=== PATIENT | female | born 1995 | race Hispanic/Latino ===

== ENCOUNTER 2023-01-07 10:58 | Inpatient (IN) | payer MEDICAID, SELFPAY ==
[2023-01-07 12:23] VITALS: BMI 37.2
[2023-01-07] MEDS ORDERED: hydrALAZINE 20 MG/ML VIAL SLOW IVP PRN ×2 (12:59→14:51)
[2023-01-07 13:04] LABS: Fetal Membranes Rupture RUPTURE DETECTED (No Rupture)
[2023-01-07 14:06] LABS: ALT (SGPT) 10 U/L (8-55); AST (SGOT) 22 U/L (5-34); Albumin 3.4 g/dL (3.5-5.0); Alkaline Phosphatase 127 U/L (40-110); Anion Gap 14 mmol/L (10-20); BUN (Urea Nitrogen) 6 mg/dL (7.0-18.7); Bilirubin, Total 0.2 mg/dL (0.2-1.2); Calc. Creatinine Clearance 232 mL/min (70-130); Calcium 8.8 mg/dL (7.8-10.44); Carbon Dioxide 20 mmol/L (22-29); Chloride 107 mmol/L (98-107); Estimated GFR 130; Globulin 3.1 g/dL (2.4-3.5); Glucose 77 mg/dL (70-105); Potassium 3.9 mmol/L (3.5-5.1); Protein, Total 6.5 g/dL (6.0-8.3); Sodium 137 mmol/L (136-145)
[2023-01-07 14:07] LABS: Hemoglobin 12.7 g/dL (12.0-15.5); Mean Corpuscular HGB CONC 33.3 g/dL (32.0-36.0); Mean Corpuscular Hemoglobin 30.2 pg (27.0-33.0); Mean Corpuscular Volume 90.5 fl (81.6-98.3); Mean Platelet Volume 11.6 fl (7.4-10.4); Platelet Count 230 10x3/uL (150-450); RBC Distribution Width 13.8 % (11.5-14.5); Red Blood Cell (RBC) Count 4.21 10x6/uL (3.90-5.03); White Blood Cell (WBC) Count 10.4 10x3/uL (3.5-10.5)
[2023-01-07 14:14] LABS: Creatinine, Urine 108.22 mg/dL (47-110)
[2023-01-07] MEDS ORDERED: HYDROcodone/Acetaminophen 5/325 mg Tablet PO PRN (14:51)
[2023-01-07] MEDS ORDERED: Tranexamic Acid 1,000 MG/10 ML VIAL IVP PRN (14:51)
[2023-01-07] MEDS ORDERED: Ibuprofen 800 MG TAB PO PRN (14:51)
[2023-01-07] MEDS ORDERED: Promethazine HCl 25 MG/ML VIAL IM PRN (14:51)
[2023-01-07] MEDS ORDERED: NS w/ Oxytocin 30 units 500 ML IV SCH ×3 (14:51)
[2023-01-07] MEDS ORDERED: Acetaminophen 500 MG TAB PO PRN (14:51)
[2023-01-07] MEDS ORDERED: Carboprost 250 MCG/ML AMP IM PRN (14:51)
[2023-01-07] MEDS ORDERED: Ondansetron PF 4 MG/2 ML Vial IVP PRN (14:51)
[2023-01-07] MEDS ORDERED: Misoprostol 200 MCG TAB PR PRN (14:51)
[2023-01-07] MEDS ORDERED: Methylergonovine 0.2 MG/ML VIAL IM PRN (14:51)
[2023-01-07] MEDS ORDERED: Diphenoxylate HCl/Atropine Tablet PO PRN (14:51)
[2023-01-07] MEDS ORDERED: Lidocaine 1% (PF) 30 ML VIAL SC PRN (14:51)
[2023-01-07] MEDS: Lactated Ringer's 1,000 ML IV SCH (15:20)
[2023-01-07] MEDS ORDERED: fentaNYL 50 mcg/mL 1 mL Vial SLOW IVP PRN (15:38)
[2023-01-07] MEDS: Misoprostol 100 MCG TAB PO SCH ×2 (16:19→20:35)
[2023-01-07 16:42] LABS: HBSAg Index 0.16 S/CO (0-0.99); Hep B Surf Ag - L&D Non-Reactive S/CO (NonReactive); Syphilis Antibody Nonreactive (Nonreactive); Syphilis Antibody Index 0.02 S/CO (<1.00 Non-Reactive)
[2023-01-08] MEDS: Misoprostol 100 MCG TAB PO SCH ×2 (01:01→05:20)
[2023-01-08] MEDS ORDERED: Misoprostol 100 MCG TAB ONE (05:19)
[2023-01-08] MEDS: Lactated Ringer's 1,000 ML IV SCH (07:24)
[2023-01-08] MEDS ORDERED: Fentanyl 2 mcg/Bup 0.1% Cadd 100 ML ONE (12:10)
[2023-01-08] MEDS ORDERED: ePHEDrine Sulfate 50 MG/10 ML VIAL SLOW IVP PRN (12:47)
[2023-01-08] MEDS ORDERED: Promethazine HCl 25 MG/ML VIAL IM PRN ×3 (12:47→17:57)
[2023-01-08] MEDS ORDERED: Lactated Ringer's 500 ML IV PRN (12:47)
[2023-01-08] MEDS ORDERED: Ondansetron PF 4 MG/2 ML Vial IVP PRN ×3 (12:47→17:57)
[2023-01-08] MEDS ORDERED: diphenhydrAMINE 50 MG/ML VIAL IVP PRN ×2 (12:47→15:30)
[2023-01-08] MEDS ORDERED: Naloxone HCl 0.4 mg/ml Vial IVP PRN ×4 (12:47→15:30)
[2023-01-08] MEDS ORDERED: Moisturizing Cream (Eucerin) 113 GM JAR TOP PRN ×2 (12:47→15:30)
[2023-01-08] MEDS ORDERED: Acetaminophen 325 MG TAB PO PRN (12:47)
[2023-01-08] MEDS ORDERED: Fentanyl 2 mcg/Bupivacaine 0.1% Cassette 100 ML EPIDURAL SCH (13:00)
[2023-01-08] MEDS ORDERED: Communication Order-Pharmacy FS SCH ×2 (13:00→15:30)
[2023-01-08] MEDS ORDERED: Azithromycin 500 MG VIAL ONE (14:51)
[2023-01-08] MEDS ORDERED: CEFAZOLIN 2 GM VIAL ONE (14:51)
[2023-01-08] MEDS ORDERED: Fentanyl 100 MCG/2 ML VIAL ONE ×3 (14:57→16:48)
[2023-01-08] MEDS ORDERED: Morphine PF 10 MG/10 ML VIAL ONE (15:03)
[2023-01-08 15:23] LABS: pH (Cord, venous) 7.257 (7.250-7.350)
[2023-01-08] MEDS ORDERED: Promethazine HCl 25 MG SUPP PR PRN (15:30)
[2023-01-08] MEDS ORDERED: Ketorolac Tromethamine 30 MG/ML VIAL IVP PRN (15:30)
[2023-01-08] MEDS ORDERED: Naloxone HCl 0.4 mg/ml Vial IV PRN (15:30)
[2023-01-08] MEDS ORDERED: Fentanyl 100 MCG/2 ML VIAL SLOW IVP PRN (15:31)
[2023-01-08] MEDS ORDERED: HYDROmorphone 2 MG/ML VIAL SLOW IVP PRN (15:31)
[2023-01-08] MEDS ORDERED: Ondansetron HCl/PF 4 MG/2 ML Vial IVP PRN (15:31)
[2023-01-08] MEDS ORDERED: Meperidine HCl/PF 25 MG/ML VIAL SLOW IVP PRN (15:31)
[2023-01-08] MEDS ORDERED: Ketorolac Tromethamine 30 MG/ML VIAL IVP SCH (15:45)
[2023-01-08] MEDS ORDERED: Bisacodyl 10 MG SUPP PR PRN (17:57)
[2023-01-08] MEDS ORDERED: Simethicone Chewable 80 MG TAB PO PRN (17:57)
[2023-01-08] MEDS ORDERED: Lanolin Ointment 7 GM TUBE TOP PRN (17:57)
[2023-01-08] MEDS ORDERED: Boostrix 0.5 ML (Tdap) VIAL (>/=7 yrs of age) IM ONE (17:57)
[2023-01-08] MEDS ORDERED: hydrALAZINE 20 MG/ML VIAL SLOW IVP PRN (17:57)
[2023-01-08] MEDS ORDERED: diphenhydrAMINE 25 MG CAP PO PRN (17:57)
[2023-01-08] MEDS: Docusate 100 MG CAP PO SCH (20:47)
[2023-01-08] MEDS: Ketorolac Tromethamine 30 MG/ML VIAL IVP SCH (20:47)
[2023-01-09 03:41] LABS: Hemoglobin 10.6 g/dL (12.0-15.5); Mean Corpuscular HGB CONC 32.4 g/dL (32.0-36.0); Mean Corpuscular Hemoglobin 29.2 pg (27.0-33.0); Mean Corpuscular Volume 90.1 fl (81.6-98.3); Mean Platelet Volume 11.3 fl (7.4-10.4); Platelet Count 198 10x3/uL (150-450); RBC Distribution Width 13.7 % (11.5-14.5); Red Blood Cell (RBC) Count 3.63 10x6/uL (3.90-5.03); White Blood Cell (WBC) Count 13.4 10x3/uL (3.5-10.5)
[2023-01-09] MEDS: Ketorolac Tromethamine 30 MG/ML VIAL IVP SCH ×2 (03:51→08:49)
[2023-01-09] MEDS ORDERED: Bupivacaine 0.25% HCL 30 ML VIAL ONE (08:00)
[2023-01-09] MEDS ORDERED: Terbutaline Sulfate 1 MG/ML VIAL ONE (08:00)
[2023-01-09] MEDS: Docusate 100 MG CAP PO SCH ×2 (08:27→21:01)
[2023-01-09] MEDS: Prenatal Vitamin 1 TAB PO SCH (08:27)
[2023-01-09] MEDS: HYDROcodone/Acetaminophen 5/325 mg Tablet PO PRN ×4 (08:27→18:24)
[2023-01-09] MEDS: Ferrous Sulfate 325 MG TAB PO SCH ×3 (08:32→21:00)
[2023-01-09] MEDS: Ibuprofen 800 MG TAB PO SCH ×2 (13:25→21:01)
[2023-01-09] MEDS: Lactated Ringer's 1,000 ML IV SCH (19:09)
[2023-01-09] MEDS: metroNIDAZOLE 500 MG TAB PO SCH (21:01)
[2023-01-09] MEDS: Cephalexin 500 MG CAP PO SCH (21:01)
[2023-01-10] MEDS: HYDROcodone/Acetaminophen 5/325 mg Tablet PO PRN ×4 (04:28→18:24)
[2023-01-10] MEDS: Ibuprofen 800 MG TAB PO SCH ×3 (05:53→21:07)
[2023-01-10] MEDS: Docusate 100 MG CAP PO SCH ×2 (09:04→21:07)
[2023-01-10] MEDS: Prenatal Vitamin 1 TAB PO SCH (09:04)
[2023-01-10] MEDS: Cephalexin 500 MG CAP PO SCH ×3 (09:05→21:06)
[2023-01-10] MEDS: metroNIDAZOLE 500 MG TAB PO SCH ×3 (09:06→21:06)
[2023-01-10] MEDS: Ferrous Sulfate 325 MG TAB PO SCH ×2 (16:30→21:36)
[2023-01-11] MEDS: Ibuprofen 800 MG TAB PO SCH ×2 (05:46→14:28)
[2023-01-11 07:21] VITALS: BP 109/64; TEMP 98.1
[2023-01-11] MEDS: Docusate 100 MG CAP PO SCH (08:42)
[2023-01-11] MEDS: Prenatal Vitamin 1 TAB PO SCH (08:42)
[2023-01-11] MEDS: metroNIDAZOLE 500 MG TAB PO SCH (08:42)
[2023-01-11] MEDS: HYDROcodone/Acetaminophen 5/325 mg Tablet PO PRN ×2 (08:43→14:28)
[2023-01-11] MEDS: Cephalexin 500 MG CAP PO SCH (08:46)
[2023-01-11] MEDS: Ferrous Sulfate 325 MG TAB PO SCH (08:47)
== END 2023-01-11 14:45 | disposition home or self-care (01) | DRG 788 ==
LOC: CSHLD/OP 10:58 → CSHLD 13:57 → CSHPED 01-08 17:40
PROVIDERS: ADMIT Family Medicine; ATTEND Family Medicine
PROC: 10D00Z1 Extraction of Products of Conception, Low, Open Approach (ICD-10-PCS; principal; 2023-01-08)
PROC: 4A133R1 Monitoring of Arterial Saturation, Peripheral, Percutaneous Approach (ICD-10-PCS; 2023-01-08)
DX: O42.02 Full-term premature rupture of membranes, onset of labor within 24 hours of rupture (principal); Z3A.38 38 weeks gestation of pregnancy; Z37.0 Single live birth; Z79.899 Other long term (current) drug therapy; O76 Abnormality in fetal heart rate and rhythm complicating labor and delivery
CPT/HCPCS: 36415; 51702; 72170; 80053; 82570; 82805; 84112; 84156; 85027; 86780; 86850; 86900; 86901; 87340; 99285; J1885; J2274; J2590; J3010; J3105; J7120; S0020